=== PATIENT | male | born 1975 | race Caucasian/White ===

== ENCOUNTER 2017-12-03 21:57 | Emergency (ER) | payer BC ==
[2017-12-03] MEDS ORDERED: Acetaminophen/HYDROcodone 325-5 MG Tab PO ONE (22:36)
--- NOTE | 2017-12-03 22:47 | EDM.PDOC ---
ED HPI GENERAL MEDICAL PROBLEM - General Chief Complaint: Lower Extremity Injury/Pain Stated Complaint: LEFT KNEE PAIN LIMITED MOVEMENT Time Seen by Provider: 12/03/17 22:18 Source of Information: Reports: Patient, RN Notes Reviewed - History of Present Illness INITIAL COMMENTS - FREE TEXT/NARRATIVE: 42-year-old male comes in with left knee pain status post injury this past afternoon about 5 hours ago. 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 As he was reaching the ground and twisting, turning to change direction he felt some type of a "pop in his knee and sudden onset severe pain. Pain has Been primarily medial with some radiation to the lower anterior aspect. The pain is severe with any type of motion and weight bearing. He has never had significant difficulty with that knee joint before. No other pain or injury apparent. Left Knee Pain Score (Numeric/FACES): 7 - Related Data Allergies Allergy/AdvReac Type Severity Reaction Status Date / Time broccoli Allergy Anaphylactic Verified 12/03/17 22:05 Shock cauliflower Allergy Anaphylactic Verified 12/03/17 22:05 Shock Penicillins Allergy Cannot Verified 12/03/17 22:05 Remember Home Meds: Home Meds . [No Known Home Meds] 12/03/17 [History] Past Medical History Genitourinary History: Reports: Renal Calculus Neurological History: Reports: Other (See Below) Other Neuro History: glioglastoma Psychiatric History: Reports: Anxiety Oncologic (Cancer) History: Reports: Other (See Below) Other Oncologic History: glioblastoma - Past Surgical History HEENT Surgical History: Reports: Tonsillectomy GI Surgical History: Reports: Cholecystectomy Male Surgical History: Reports: Lithotripsy ([facility]) Social & Family History - Tobacco Use Smoking Status *Q: Current Every Day Smoker Years of Tobacco use: 30 Packs/Tins Daily: 1 - Recreational Drug Use Recreational Drug Use: No Review of Systems - Review of Systems Review Of Systems: See Below Constitutional: Reports: No Symptoms Respiratory: Denies: Shortness of Breath Cardiovascular: Denies: Chest Pain GI/Abdominal: Denies: Abdominal Pain, Nausea, Vomiting Musculoskeletal: Reports: Joint Pain (Left knee) Skin: Reports: No Symptoms Neurological: Denies: Numbness, Tingling ED EXAM, GENERAL - Physical Exam Exam: See Below General Appearance: Alert, Moderate Distress Throat/Mouth: Normal Inspection Respiratory/Chest: No Respiratory Distress Extremities: Joint Swelling (Is very mild swelling of the left knee medially and inferior aspect, no obvious effusion, tenderness medial aspect and also anterior/inferior aspect of knee. Very limited range of motion, cannot extend completely and limited flexion ability as well. Joint is stable at this time.), Limited Range of Motion. No: Leg Pain, Increased Warmth, Redness Course - Vital Signs Last Recorded V/S: Last Vital Signs Temp 97.2 F 12/03/17 22:06 Pulse 72 12/03/17 22:06 Resp 18 12/03/17 22:06 BP 122/86 12/03/17 22:06 Pulse Ox 98 12/03/17 22:06 - Orders/Labs/Meds Meds: Medications Discontinued Medications Generic Name Dose Route Start Last Admin Trade Name Freq PRN Reason Stop Dose Admin Hydrocodone Bitart/Acetaminophen 1 tab 12/03/17 22:36 12/03/17 22:41 [place] 325-5 Mg PO 12/03/17 22:37 1 tab ONETIME ONE Administration Departure - Departure Time of Disposition: 23:17 Disposition: Home, Self-Care 01 Condition: Fair Clinical Impression: Left knee sprain Qualifiers: Encounter type: initial encounter Involved ligament of knee: unspecified ligament Qualified Code(s): S83.92XA - Sprain of unspecified site of left knee, initial encounter - Discharge Information Instructions: Knee Sprain, Adult, [id number] Referrals: Rylee Mcgee FURNITURE TECHNICIAN [Primary Care Provider] - Forms: ED Department Discharge Additional Instructions: Mario wrap left knee, ice packs and elevation as needed for swelling, you also may olive picker a sleeve or small knee brace at [facility] or any pharmacy if needed for further knee protection and comfort. Advil or ibuprofen 600 mg 3 times daily with food for pain and inflammation. Take Tylenol in addition in between doses of ibuprofen also 3 times daily. You may take tramadol if needed for severe pain not relieved by ibuprofen and Tylenol. Do not drive while taking tramadol if that does make you at all sleepy. For most people it is nonsedating. See Orthopedist, Xin or Dr. Eid, if not much better within 5- 7 days as expected. Call for appointment as needed.
--- NOTE | 2017-12-04 07:14 | CR ---
Left knee: Four views of the left knee were obtained. Comparison: No previous study. No joint effusion is seen. Medial and lateral joint compartments are maintained in height. No fracture, dislocation or other bony abnormality is identified. Impression: 1. No abnormality is appreciated on left knee exam. Diagnostic code #1
== END 2017-12-03 23:35 | disposition home or self-care (01) ==
LOC: JD.ED 21:57
DX: S83.92XA Sprain of unspecified site of left knee, initial encounter (principal); F17.210 Nicotine dependence, cigarettes, uncomplicated; Z87.442 Personal history of urinary calculi; F41.9 Anxiety disorder, unspecified; Z91.018 Allergy to other foods; Z88.0 Allergy status to penicillin; X50.1XXA Overexertion from prolonged static or awkward postures, initial encounter
CPT/HCPCS: 73564; 99284; A9270; 99283